=== PATIENT | female | born 1940 | race Caucasian/White ===

== ENCOUNTER → 2020-12-23 | Outpatient (CLI) | payer MEDICARE, BC ==
--- NOTE | 2020-12-23 14:51 | RAD ---
EXAM: Chest, 2 views. HISTORY: Chest pain. COMPARISON: None. FINDINGS: 2 views of the chest are obtained. There is no infiltrate, pleural effusion or pneumothorax . There is mild elevation/eventration of the right hemidiaphragm. The heart is normal in size. IMPRESSION: No acute pulmonary finding. Electronically signed by: Mirna Patel MD (12/23/2020 2:49 PM) [id number]
== END ==
LOC: RAD 14:30
PROVIDERS: ATTEND Specialist
DX: R06.00 Dyspnea, unspecified (principal)
CPT/HCPCS: 71046